=== PATIENT | female | born 1960 | race Caucasian/White ===

== ENCOUNTER 2016-06-21 06:25 | Emergency (ER) | payer SELFPAY ==
[2016-06-21 07:58] LABS: HEMOGLOBIN 14.3 gm/dl (12.3-15.3); RED BLOOD COUNT 4.85 M/UL (4.00-5.10); WHITE BLOOD COUNT 13.5 K/UL (4.5-11.0)
[2016-06-21 08:06] LABS: BUN/CREATININE RATIO 17 (0-10)
[2016-06-23] MEDS ORDERED: NORCO 7.5-3251 EACH PO (11:11)
== END 2016-06-21 14:25 | disposition home or self-care (01) ==
LOC: ER1 06:25
PROVIDERS: Physician Assistant
DX: K80.70 Calculus of gallbladder and bile duct without cholecystitis without obstruction (principal); R73.9 Hyperglycemia, unspecified
CPT/HCPCS: 36415; 76705; 80053; 82962; 83690; 85025; 93005; 96374; 96375; 99284; J1335; J2270; J2405; J7050; Q9962

== ENCOUNTER 2016-06-21 19:49 | Emergency (ER) | payer SELFPAY ==
[2016-06-23] MEDS ORDERED: NORCO 7.5-3251 EACH PO (11:11)
== END 2016-06-21 23:25 | disposition home or self-care (01) ==
LOC: ER1 19:49
DX: K80.70 Calculus of gallbladder and bile duct without cholecystitis without obstruction (principal); I10 Essential (primary) hypertension
CPT/HCPCS: 36415; 99284; Q0162

== ENCOUNTER → 2016-06-23 | Day surgery (SDC) | payer SELFPAY ==
[~2016-06-23] VITALS: Ht 170.2 cm; Wt 112.5 kg
[~2016-06-23] MED LIST: NORCO 7.5-3251 EACH PO
== END | disposition home or self-care (01) ==
LOC: OR 06:47
PROVIDERS: Surgery
PROC: BF13YZZ Fluoroscopy of Gallbladder and Bile Ducts using Other Contrast (ICD-10-PCS; 2016-06-23)
PROC: 0FT44ZZ Resection of Gallbladder, Percutaneous Endoscopic Approach (ICD-10-PCS; principal; 2016-06-23 07:30)
DX: K80.00 Calculus of gallbladder with acute cholecystitis without obstruction (principal); Z79.899 Other long term (current) drug therapy; Z87.19 Personal history of other diseases of the digestive system
CPT/HCPCS: 47531; 82962; J0295; J3010; J7030; J7050; J7120; Q9962